=== PATIENT | male | born 1960 | race Caucasian/White ===

== ENCOUNTER 2019-04-25 11:50 | Emergency (ER) | payer BC ==
[~2019-04-25] VITALS: Ht 165.1 cm; Wt 85.0 kg
[2019-04-25] MEDS ORDERED: ATOR1TAB21 PO (12:06)
[2019-04-25] MEDS ORDERED: PIOG1TAB55 PO (12:06)
[2019-04-25] MEDS ORDERED: LISI-538 PO (12:06)
[2019-04-25] MEDS ORDERED: SENN1TAB8 PO (12:06)
[2019-04-25] MEDS ORDERED: GLIP10TA PO ×2 (12:06)
[2019-04-25] MEDS ORDERED: HUMA100I3 SC (12:06)
[2019-04-25] MEDS ORDERED: MAGN400C2 PO (12:06)
[2019-04-25] MEDS ORDERED: LANTINJ4 SC (12:06)
[2019-04-25] MEDS ORDERED: ASPI81CH33 PO (12:06)
[2019-04-25] MEDS ORDERED: BISACODYL 10 MG SUPP PR ONE (13:00)
--- NOTE | 2019-04-25 14:01 | REP ---
REASON: Left-sided pain. There is a single gas-filled loop of small bowel which is mildly dilated on the right. Other nondilated gas-filled small bowel loops are seen in the abdomen in a nonspecific fashion. The upright view does show a few air-fluid levels. The organ silhouettes insofar as delineated are within normal limits. Chronic change is seen involving the spine and hips. IMPRESSION: Ileus versus possible early SBO correlate clinically. Electronically Signed by Darinel Dorsey DO 04/25/2019 05:12 P
[2019-04-25] MEDS ORDERED: COLA100C5 PO (14:22)
[2019-04-25] MEDS ORDERED: DULC10SU2 PR (14:22)
[2019-04-25 14:31] VITALS: BP 121/74
--- NOTE | 2019-04-26 15:06 | ED PDOC ---
Post-Departure Follow-Up rina ortiz faxed formal report of abdl films for fu Saundra Moreno MD Apr 26, 2019 15:06
== END 2019-04-25 14:54 | disposition home or self-care (01) ==
LOC: M ED 11:50
DX: K59.00 Constipation, unspecified (principal); K56.7 Ileus, unspecified; I10 Essential (primary) hypertension; E78.00 Pure hypercholesterolemia, unspecified; E11.9 Type 2 diabetes mellitus without complications; Z87.19 Personal history of other diseases of the digestive system; Z79.899 Other long term (current) drug therapy; Z79.82 Long term (current) use of aspirin; Z79.4 Long term (current) use of insulin

== ENCOUNTER 2024-05-09 09:39 | Day surgery (SDC) | payer MEDICARE ==
[~2024-05-09] VITALS: Ht 165.1 cm; Wt 92.5 kg
[~2024-05-09 09:39] MED LIST: ALFU10TA23 PO; ASPI81CH33 PO; ATOR1TAB21 PO; COLA100C5 PO; D-50CAP PO; DULC10SU2 PR; FINA5TAB2 PO; GLIP10TA PO; HUMA100I3 SC; LANTINJ4 SC; LISI20TA33 PO; MAGN400C2 PO; MIDAZOLAM INJ 2MG/2ML VIAL As Ordered ONE; NOVOINJ3 SQ; PHENYLEPHRINE 10% OPHTH SOL 5ML OD PRN; PIOG1TAB55 PO; SEMA1PEN2; SENN-186 PO; TRES1INJ2 SQ; XALA0.007; XARE20TA PO; fentaNYL 100 MCG/2 ML INJECTION As Ordered ONE
[2024-05-09] MEDS: LIDOCAINE 1% SDV 5ML VIAL As Ordered ONE (10:42)
[2024-05-09] MEDS: BSS IRRIG/VANCO(10MG)/TOBRA(5MG)/EPINEPH(1:1000-0.5CC)500ML BAG-ORONLY As Ordered ONE (10:42)
[2024-05-09] MEDS: CEFUROXIME 1MG/0.1ML INTRACAMERAL INJ As Ordered ONE (10:47)
[2024-05-09] MEDS: CARBACHOL 0.01% OPHTH SOLN 1.5ML VIAL As Ordered ONE (10:55)
[2024-05-09 10:58] VITALS: BP 131/73; TEMP 96.8; O2SAT 99
[2024-05-09] MEDS: OFLOXACIN 0.3 % (OCUFLOX) OPTH SOL 5ML OD ONE (11:00)
[2024-05-09] MEDS: LIDOCAINE 3.5 % 1ML OPHTH TOPICAL GEL OU ONE (11:00)
[2024-05-09] MEDS: TROPICAMIDE 1% OPHTH SOLN 15ML OD SCH (13:59)
[2024-05-09] MEDS: PHENYLEPHRINE 2.5% OPHTH SOL 2ML OD SCH (13:59)
[2024-05-09] MEDS: ATROPINE SULFATE 1% OPHTH SOLN 2ML BTL OD SCH (13:59)
== END 2024-05-09 11:12 | disposition home or self-care (01) ==
LOC: M SDC 09:39
PROVIDERS: ATTEND Ophthalmology
DX: H25.11 Age-related nuclear cataract, right eye (principal); H40.1112 Primary open-angle glaucoma, right eye, moderate stage; E11.9 Type 2 diabetes mellitus without complications; E78.00 Pure hypercholesterolemia, unspecified; N40.0 Benign prostatic hyperplasia without lower urinary tract symptoms; M54.9 Dorsalgia, unspecified; Z79.899 Other long term (current) drug therapy; Z79.01 Long term (current) use of anticoagulants; Z79.4 Long term (current) use of insulin; Z79.85 Long-term (current) use of injectable non-insulin antidiabetic drugs
CPT/HCPCS: 66988; C1783; J0697; J2250; J3010; V2632

== ENCOUNTER 2024-06-13 10:34 | Day surgery (SDC) | payer MEDICARE ==
[~2024-06-13] VITALS: Ht 165.1 cm; Wt 91.2 kg
[~2024-06-13 10:34] MED LIST changes: +ATROPINE SULFATE 1% OPHTH SOLN 2ML BTL OS SCH; +LIDOCAINE 3.5 % 1ML OPHTH TOPICAL GEL OU ONE; +OFLOXACIN 0.3 % (OCUFLOX) OPTH SOL 5ML OS ONE; -PHENYLEPHRINE 10% OPHTH SOL 5ML OD PRN; +PHENYLEPHRINE 10% OPHTH SOL 5ML OS PRN; +PHENYLEPHRINE 2.5% OPHTH SOL 2ML OS SCH; +TROPICAMIDE 1% OPHTH SOLN 15ML OS SCH; -fentaNYL 100 MCG/2 ML INJECTION As Ordered ONE
[2024-06-13] MEDS: CEFUROXIME 1MG/0.1ML INTRACAMERAL INJ As Ordered ONE (11:59)
[2024-06-13] MEDS: LIDOCAINE 1% SDV 5ML VIAL As Ordered ONE (11:59)
[2024-06-13] MEDS: DUOVISC (0.50ML VISCOAT/0.85ML PROVISC) OPHTH KIT As Ordered ONE (11:59)
[2024-06-13] MEDS: BSS IRRIG/VANCO(10MG)/TOBRA(5MG)/EPINEPH(1:1000-0.5CC)500ML BAG-ORONLY As Ordered ONE (11:59)
[2024-06-13] MEDS ORDERED: fentaNYL 100 MCG/2 ML INJECTION As Ordered ONE (12:14)
[2024-06-13 12:34] VITALS: BP 116/69; TEMP 97.5; O2SAT 94
== END 2024-06-13 12:38 | disposition home or self-care (01) ==
LOC: M SDC 10:34
PROVIDERS: ATTEND Ophthalmology
DX: H25.12 Age-related nuclear cataract, left eye (principal); H40.1111 Primary open-angle glaucoma, right eye, mild stage; E11.9 Type 2 diabetes mellitus without complications; Z98.41 Cataract extraction status, right eye; Z79.899 Other long term (current) drug therapy
CPT/HCPCS: 66991; C1783; J0697; J2250; J3010; V2632